=== PATIENT | male | born 1990 | race Caucasian/White ===

== ENCOUNTER 2018-12-18 00:49 | Emergency (ER) | payer OTHER ==
[~2018-12-18] VITALS: Ht 177.8 cm; Wt 95.3 kg
[~2018-12-18 00:49] MED LIST: HYDR-1189 PO; IBUP-1017 PO; TAMS-11 PO
--- NOTE | 2018-12-18 00:54 | NUR ---
Patient to ER bed 7 to gown for evaluation. Side rails up. Report given to TEJAS KRISHNAN.
[2018-12-18 00:55] VITALS: BP_SYST 150
--- NOTE | 2018-12-18 01:06 | NUR ---
ER Dr. Ureña at bedside examining patient.
--- NOTE | 2018-12-18 01:06 | NUR ---
ER at bedside examining patient.
[2018-12-18] MEDS ORDERED: HYDROcodone/ACETAMIN 5-325 MG TAB (NORCO/ VICODIN) PO ONE (01:15)
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
--- NOTE | 2018-12-18 01:54 | NUR ---
[facility] at bedside speaking with patient.
--- NOTE | 2018-12-18 01:54 | NUR ---
Carolyne mcdermott in [facility] - 12/18/18 at 0154 by [email or web address] Patient moved to bed 5.
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
[2018-12-18 03:30] VITALS: BP_SYST 150
--- NOTE | 2018-12-18 03:30 | NUR ---
Patient given written and verbal discharge instructions and verbalizes understanding. ER MD discussed with patient the results and treatment provided. Patient in stable condition. ID arm band removed. IV catheter removed intact and dressing applied, no active bleeding. Rx of [place] given. Patient educated on pain management and to follow up with PMD. Pain Scale 0/10 Opportunity for questions provided and answered. Medication side effect fact sheet provided.
== END 2018-12-18 03:30 | disposition home or self-care (01) ==
LOC: SED 00:49
DX: S13.4XXA Sprain of ligaments of cervical spine, initial encounter (principal); S00.83XA Contusion of other part of head, initial encounter; Z79.899 Other long term (current) drug therapy; V03.09XA Pedestrian with other conveyance injured in collision with car, pick-up truck or van in nontraffic accident, initial encounter; Y93.89 Activity, other specified; Y92.410 Unspecified street and highway as the place of occurrence of the external cause; Y99.8 Other external cause status
CPT/HCPCS: 70450-TC; 70487; 72125-TC; 99284